=== PATIENT | female | born 1970 ===

== ENCOUNTER 2023-08-06 14:51 | Emergency (ER) | payer MEDICAID, MEDICARE ==
[2023-08-06] MEDS: Acetaminophen/HYDROcodone 325-10 MG Tab PO ONE (15:23)
[2023-08-06] MEDS: Take Home: Acetaminophen/HYDROcodone 325-10 MG, 5 Tab Pack PO ONE (17:46)
== END 2023-08-06 17:45 | disposition home or self-care (01) ==
LOC: LL.ED 14:51
DX: S52.572A Other intraarticular fracture of lower end of left radius, initial encounter for closed fracture (principal); Z79.899 Other long term (current) drug therapy; W19.XXXA Unspecified fall, initial encounter
CPT/HCPCS: 29125; 73110-LT; 99283-25; A9270-GY